=== PATIENT | female | born 1955 | race Caucasian/White ===

== ENCOUNTER 2016-06-08 19:58 | Emergency (ER) | payer MEDICAID ==
[2016-06-08] MEDS ORDERED: LIDOCAINE 2% 20 ML ONE (21:06)
[2016-06-08] MEDS ORDERED: LORAZEPAM 0.5 MG TAB ONE (21:33)
[2016-06-08] MEDS ORDERED: DILAUDID 1 MG/ML AMP ONE (21:35)
[2016-06-08] MEDS ORDERED: ONDANSETRON ODT 4 MG TAB ONE (21:35)
== END 2016-06-08 22:52 | disposition home or self-care (01) ==
LOC: FASTR 19:58
DX: L02.31 Cutaneous abscess of buttock (principal); B35.4 Tinea corporis; B35.6 Tinea cruris; E11.9 Type 2 diabetes mellitus without complications; Z79.4 Long term (current) use of insulin; Z79.82 Long term (current) use of aspirin; F17.200 Nicotine dependence, unspecified, uncomplicated; Z79.02 Long term (current) use of antithrombotics/antiplatelets
CPT/HCPCS: 96372